=== PATIENT | male | born 1995 | race Caucasian/White ===

== ENCOUNTER 2016-05-16 13:38 | Emergency (ER) | payer OTHER ==
[~2016-05-16] VITALS: Ht 188 cm; Wt 117.9 kg
[2016-05-16] MEDS ORDERED: LISI-552 PO (14:24)
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
[2016-05-16 15:17] VITALS: BP 115/78
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
== END 2016-05-16 15:17 | disposition home or self-care (01) ==
LOC: EDUNIT# 13:38 → ER 13:40
DX: S01.112A Laceration without foreign body of left eyelid and periocular area, initial encounter (principal); I10 Essential (primary) hypertension; Z79.899 Other long term (current) drug therapy; W50.0XXA Accidental hit or strike by another person, initial encounter; Y93.45 Activity, cheerleading; Y99.8 Other external cause status

== ENCOUNTER 2016-08-17 18:53 | Emergency (ER) | payer OTHER ==
[~2016-08-17] VITALS: Ht 188 cm; Wt 113.4 kg
[~2016-08-17 18:53] MED LIST: LISI-552 PO
[2016-08-17] MEDS ORDERED: LISI10TA2 PO (19:12)
[2016-08-17] MEDS ORDERED: FAMOTIDINE 20MG/2ML IV (PEPCID) IV STA (19:17)
[2016-08-17] MEDS ORDERED: methylPREDNISolone 125 MG (Solu-MEDROL) VIAL IV STA (19:17)
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
[2016-08-17 20:30] VITALS: BP 149/88
== END 2016-08-17 20:30 | disposition home or self-care (01) ==
LOC: EDUNIT# 18:53 → ER 18:55
DX: L50.9 Urticaria, unspecified (principal); I10 Essential (primary) hypertension
CPT/HCPCS: 96374; 96375

== ENCOUNTER 2017-02-02 15:17 | Emergency (ER) | payer OTHER ==
[~2017-02-02] VITALS: Ht 188 cm; Wt 113.4 kg
[~2017-02-02 15:17] MED LIST changes: +LISI10TA2 PO
--- NOTE | 2017-02-02 16:32 | ED Upper Extremity ---
General Chief Complaint: Upper Extremity Stated Complaint: RIGHT HAND NUMBNESS Nursing Triage Note: DURING CHEER PRACTICE ON TUESDAY, GIRLS LANDED ON PT'S R-HAND. PT. STATES R-RING FINGER ET R-MIDDLE FINGER AT TIMES FEELS NUMB. STATES IT TURNED WHITE AT PRACTICE TODAY, IN THE MORNING. C/O PAIN TO R-PALM W/ITCHING TO R-RING ET R-MIDDLE FINGER. STATES HE'S JUST WANTING TO GET IT CHECKED OUT. Nursing Sepsis Screen: No Definite Risk Source: patient Exam Limitations: no limitations History of Present Illness Time seen by provider: 16:29 Initial Comments To ER with 3 days' worth of pain to the right hand and fingers. 3 days ago with the onset of this pain he was in cheerleading practice lifting up on the girls. Their foot was in the palm of his hand. Since then he's had discoloration intermittently of all of the fingers on the right hand but mostly the middle 3 fingers and the ring finger and middle finger have briefly turned white and cold. The area is minimally painful and states that it just feels bruised. Onset: just prior to arrival Severity: moderate Pain/Injury Location: right hand Method of Injury: sports injury Allergies and Home Medications Allergies Coded Allergies: No Known Drug Allergies (Unverified , 05/16/16) Home Medications Lisinopril 10 Mg Tablet, 10 MG PO DAILY, (Reported) Constitutional: see HPI EENTM: see HPI Respiratory: no symptoms reported Cardiovascular: no symptoms reported Genitourinary: no symptoms reported Musculoskeletal: see HPI Skin: no symptoms reported Psychiatric/Neurological: No Symptoms Reported Past Csgcwjr-Ltoxdv-Flbmay Hx Patient Social History Alcohol Use: Occasionally Uses Number of Drinks Today: AA Alcohol Beverage of Choice: Beer Recreational Drug Use: No 2nd Hand Smoke Exposure: No Recent Foreign Travel: No Contact w/Someone Who Travel: No Recent Infectious Disease Expo: No Recent Hopitalizations: No Immunizations Up To Date Tetanus Booster (TDap): Less than 5yrs Seasonal Allergies Seasonal Allergies: No Surgeries History of Surgeries: Yes (CYST REMOVAL, WISDOM TEETH) Respiratory History of Respiratory Disorde: No Cardiovascular History of Cardiac Disorders: Yes Cardiac Disorders: Hypertension Neurological History of Neurological Disord: No Genitourinary History of Genitourinary Disor: No Gastrointestinal History of Gastrointestinal Di: No Musculoskeletal History of Musculoskeletal Dis: No Endocrine History of Endocrine Disorders: No HEENT History of HEENT Disorders: No Cancer History of Cancer: No Psychosocial History of Psychiatric Problem: No Integumentary History of Skin or Integumenta: No Blood Transfusions History of Blood Disorders: No Physical Exam Vital Signs Vital Sign - Last 12Hours 02/02/17 16:05 Temp 98.2 Pulse 72 B/P (MAP) 146/76 (99) Pulse Ox 94 O2 Delivery Room Air Capillary Refill : Less Than 3 Seconds General Appearance: WD/WN, no apparent distress HEENT: PERRL/EOMI, normal ENT inspection Neck: non-tender, full range of motion Respiratory: no respiratory distress, no accessory muscle use Gastrointestinal: normal bowel sounds, non tender Shoulder: normal inspection, non-tender Elbow/Forearm: normal inspection, non-tender, Right Wrist: Yes normal inspection, Yes non-tender Hand: Right (mottling of the middle 3 fingers of the right hand. Capillary refill is 3 seconds. No necrotic tissue.) Neurologic/Psychiatric: alert, normal mood/affect, oriented x 3 Skin: normal color, warm/dry Progress/Results/Core Measures Results/Orders My Orders Orders - BASIL BOWMAN APRN Hand, Right, 3 Views (02/02/17 16:13) Vital Signs/I&O Vital Sign - Last 12Hours 02/02/17 16:05 Temp 98.2 Pulse 72 B/P (MAP) 146/76 (99) Pulse Ox 94 O2 Delivery Room Air Blood Pressure Mean: 99 Departure Impression Impression: Primary Impression: Reflex sympathetic dystrophy right hand Disposition: 01 HOME, SELF-CARE Condition: Stable Departure-Patient Inst. Decision time for Depature: 16:31 Referrals: [facility] (PCP/Family) Primary Care Physician Patient Instructions: Complex Regional Pain Syndrome Add. Discharge Instructions: 1. Follow-up with your regular physician or [employer] [facility]. Alternatively he may follow up with a hand surgeon Dr. Headley 2. No sports or use of the right hand for the next 2 weeks. All discharge instructions reviewed with patient and/or family. Voiced understanding. BASIL BOWMAN APRN Feb 02, 2017 16:32
[2017-02-02 16:34] VITALS: BP 132/71
--- NOTE | 2017-02-02 16:48 | Diagnostic Imaging Report ---
INDICATION: Pain and numbness status post injury. COMPARISON: None. EXAMINATION: Three views of the right hand were obtained. FINDINGS: There is a small linear extraosseous density versus calcification projecting over the lateral margins of the fourth proximal inner phalangeal joint space. Otherwise, no other acute osseous abnormalities are seen. Joint spaces are intact. Soft tissue structures are unremarkable. No expected radiopaque foreign bodies are seen. IMPRESSION: 1. Small extraosseous density/calcification projecting over the lateral margins of the fourth proximal interphalangeal joint space. Findings could be on the basis of avulsed fracture fragment. Acute versus chronic etiology is indeterminate. Correlation with point tenderness is recommended. 2. Otherwise, unremarkable radiographic exam of the right hand. Dictated by: Dictated on workstation # [id number]
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
== END 2017-02-02 16:34 | disposition home or self-care (01) ==
LOC: EDUNIT# 15:17 → ER 15:20
DX: G90.511 Complex regional pain syndrome I of right upper limb (principal); I10 Essential (primary) hypertension
CPT/HCPCS: 73130; 99282

== ENCOUNTER 2018-10-27 15:54 | Emergency (ER) | payer OTHER ==
[~2018-10-27] VITALS: Ht 185 cm; Wt 130.0 kg
[2018-10-27] MEDS ORDERED: ACHD5005 PO (16:11)
[2018-10-27] MEDS ORDERED: AMOX500C2 PO (16:11)
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
--- NOTE | 2018-10-27 16:50 | Diagnostic Imaging Report ---
INDICATION: Nasal injury. EXAMINATION: AP and lateral views of the nasal bones were obtained. FINDINGS: On the lateral view, there appears to be a fracture of the nasal bone with inferior displacement of the distal fragment relative to the proximal fragment by about 2 mm. IMPRESSION: Acute nasal bone fracture with about 2 mm of inferior displacement of the distal fragment relative to the proximal fragment. Dictated by: Dictated on workstation # [id number]
[2018-10-27 16:55] VITALS: BP 146/84
== END 2018-10-27 16:55 | disposition home or self-care (01) ==
LOC: EDUNIT# 15:54 → ER 15:58
DX: S02.2XXA Fracture of nasal bones, initial encounter for closed fracture (principal); I10 Essential (primary) hypertension; W50.0XXA Accidental hit or strike by another person, initial encounter
CPT/HCPCS: 70160

== ENCOUNTER 2020-04-11 16:03 | Emergency (ER) | payer OTHER ==
[~2020-04-11] VITALS: Ht 187.9 cm; Wt 156.4 kg
[~2020-04-11 16:03] MED LIST changes: +ACHD5005 PO; +AMOX500C2 PO; -LISI-552 PO; -LISI10TA2 PO; +LISI10TA25 PO; +LISI20TA26 PO
[2020-04-11 16:22] VITALS: BP 144/73
--- NOTE | 2020-04-11 17:04 | Diagnostic Imaging Report ---
INDICATION: Left thumb injury 3 views of the left thumb show no fracture, dislocation or other acute abnormalities. IMPRESSION: Negative left thumb. AP view of the other fingers does not show any abnormalities. Dictated by: Dictated on workstation # [id number]
--- NOTE | 2020-04-11 17:06 | ED Upper Extremity ---
General Chief Complaint: Upper Extremity Stated Complaint: L THUMB INJ Nursing Triage Note: PT AMB TO TRIAGE WITH COMPLAINT OF LEFT THUMB INJURY. STATES BENT THUMB BACK DURING FOOTBALL PRACTICE WHEN TRYING TO GRAB SOMEONE. Nursing Sepsis Screen: No Definite Risk Source: patient Exam Limitations: no limitations History of Present Illness Date Seen by Provider: Apr 11, 2020 Time Seen by Provider: 16:30 Initial Comments 24-year-old male who presents to the emergency room with complaints of left thumb pain after bending his thumb backwards during a football practice when trying to grab someone. Moderate swelling noted to the base of the left thumb. Onset: just prior to arrival Pain/Injury Location: left thumb Method of Injury: direct blow Allergies and Home Medications Allergies Coded Allergies: No Known Drug Allergies (Unverified , 05/16/16) Home Medications Lisinopril 10 Mg Tablet, 10 MG PO DAILY, (Reported) Patient Home Medication List Home Medication List Reviewed: Yes Review of Systems Constitutional: see HPI; No chills, No fever Musculoskeletal: see HPI, joint pain (Left thumb pain) All Other Systems Reviewed Negative Unless Noted: Yes Past Cekydoj-[id number]-[id number] Hx Past Med/Social Hx: Reviewed Nursing Past Med/Soc Hx Patient Social History Alcohol Use: Occasionally Uses Number of Drinks Today: AA Alcohol Beverage of Choice: Beer Smoking Status: Never a Smoker 2nd Hand Smoke Exposure: No Recent Infectious Disease Expo: No Recent Hopitalizations: No Immunizations Up To Date Tetanus Booster (TDap): Less than 5yrs Seasonal Allergies Seasonal Allergies: No Past Medical History Surgeries: Yes (CYST REMOVAL, WISDOM TEETH) Respiratory: No Cardiac: Yes Hypertension Neurological: No Genitourinary: No Gastrointestinal: No Musculoskeletal: No Endocrine: No HEENT: No Cancer: No Psychosocial: No Integumentary: No Blood Disorders: No Family Medical History Reviewed Nursing Family Hx Physical Exam Vital Signs Vital Signs - First Documented 04/11/20 16:22 Temp 36.7 Pulse 104 Resp 16 B/P (MAP) 144/73 (96) Pulse Ox 96 O2 Delivery Room Air Capillary Refill : Less Than 3 Seconds Height, Weight, BMI Height: 6'2.00" Weight: 250lbs. oz. [id number]; 44.00 BMI Method:Stated General Appearance: WD/WN, no apparent distress Cardiovascular: normal peripheral pulses, regular rate, rhythm, no edema, no gallop, no JVD, no murmur Respiratory: chest non-tender, lungs clear, normal breath sounds, no respiratory distress, no accessory muscle use Gastrointestinal: normal bowel sounds, non tender, soft, no organomegaly, no pulsatile mass, abnormal bowel sounds Hand: Left (Mild swelling to the base of the left thumb) Neurologic/Psychiatric: alert, normal mood/affect, oriented x 3 Skin: normal color, warm/dry Progress/Results/Core Measures Results/Orders My Orders Orders - MICH SIMON Finger(S) (04/11/20 16:30) Vital Signs/I&O 04/11/20 16:22 Temp 36.7 Pulse 104 Resp 16 B/P (MAP) 144/73 (96) Pulse Ox 96 O2 Delivery Room Air Blood Pressure Mean: 96 Departure Impression Primary Impression: Contusion of left thumb Disposition: 01 HOME, SELF-CARE Condition: Stable/Unchanged Departure-Patient Inst. Decision time for Depature: 17:36 Referrals: [facility] (PCP/Family) Primary Care Physician Patient Instructions: Common Finger Injuries, Contusion (DC) Add. Discharge Instructions: You may alternate Tylenol and ibuprofen as needed for pain relief. Ice to the sore areas at 20-minute intervals. Return back to the emergency room for worsening symptoms or concerns as needed. All discharge instructions reviewed with patient and/or family. Voiced understanding. MICH SIMON Apr 11, 2020 17:06
== END 2020-04-11 17:44 | disposition home or self-care (01) ==
LOC: EDUNIT# 16:03 → ER 16:05
DX: S60.012A Contusion of left thumb without damage to nail, initial encounter (principal); I10 Essential (primary) hypertension; X50.1XXA Overexertion from prolonged static or awkward postures, initial encounter; Y93.61 Activity, american tackle football
CPT/HCPCS: 73140